=== PATIENT | male | born 1985 | race Caucasian/White ===

== ENCOUNTER → 2019-07-27 15:36 | Day surgery (SDC) | payer BC ==
--- NOTE | 2019-07-27 06:31 | HP ---
ADMITTING HISTORY AND PHYSICAL: DATE OF ADMISSION: 07/27/19 ADMITTING DIAGNOSIS: Left ureteral calculus. PLANNED PROCEDURE: Left ureteroscopy, possible laser and stent insertion. HISTORY OF PRESENT ILLNESS: Dante Yousif is a 34-year-old gentleman who has had an approximately 2-week history of intermittent left flank pain. He was initially noted to have an approximately 7 mm calculus in the mid to distal left ureter and has been managed conservatively. Most recently, he has been noted to have a persistent calculus 7 mm in the area of the left ureterovesical junction and is now being brought in for left ureteroscopy. I recommended that if he wants he could wait until next week to see if he is able to spontaneously pass the calculus, but at this point he would like to go ahead and proceed with left ureteroscopy. PAST MEDICAL HISTORY: Significant for anxiety, depression. PAST SURGICAL HISTORY: Significant for appendectomy. MEDICATIONS ON ADMISSION: Escitalopram 5 mg daily. ALLERGIES: PENICILLIN (rash). FAMILY HISTORY: Negative for stones. SOCIAL HISTORY: Smoking history: He is a nonsmoker. REVIEW OF SYSTEMS: He is otherwise in excellent health. There is no history of diabetes mellitus or any other major systemic illness. He denies any chest pain or shortness of breath. PHYSICAL EXAMINATION GENERAL: Reveals a pleasant, healthy-appearing young gentleman. VITAL SIGNS: Blood pressure is 128/80, pulse 77 per minute and regular, temperature 98.3, oxygen saturation 99% on room air. LUNGS: Clear bilaterally. CARDIOVASCULAR: Regular rate and rhythm. S1, S2. ABDOMEN: Soft with mild left flank tenderness. IMPRESSION: A 34-year-old gentleman with a persistent calculus in the left distal ureter. Planned procedure is left ureteroscopy, possible laser and stent insertion. I have discussed the procedure in detail including possible risks of infection, injury to the ureter, and also discussed the alternative of trying to continue conservative management. PLAN: Left ureteroscopy, possible laser and stent insertion. [id number]/CPS #: [id number] [facility]
[~2019-07-27 15:36] MED LIST: Acetaminophen IV 1GM/100ML * 100 ML ONE; Dexamethasone IV* 4 MG/ML 1 ML (4 MG) ONE; DiMENhydriNATE IV* 50 MG/ML VIAL IV PUSH PRN; Famotidine IV* 10 MG/ML 2 ML (20 mg) ONE; HYDROmorphone INJ1* 1 MG/ML SYRINGE IV PRN; Iohexol 180 (CONTRAST) 10 ML SDV IV ONE; Lidocaine 2% PF * 5 ML VIAL ONE; Midazolam* 1 MG/ML 5 ML VIAL (5 MG) ONE; Naloxone* 0.4 MG/ML 1 ML VIAL IV PRN; Ondansetron INJ* 2 MG/ML VIAL ONE; PROCHLORPERAZINE INJ 5 MG/ML 2 ML VIAL IV PRN; PROCHLORPERAZINE INJ 5 MG/ML 2 ML VIAL ONE; Propofol* 10 MG/ML 20 ML BTL ONE; Scopolamine 1.5 mg* PATCH TRANSDERM PRN; Scopolamine PATCH Remove* 1 NOTE MISC PATCH OFF ONE; Tamsulosin CAP* 0.4 MG ONE; cefTRIAXone(*) 2 GM ADDV.VIAL IVPB ONE; fentaNYL* 50 MCG/ML 2 ML VIAL (100 MCG VIAL) IV PRN; fentaNYL* 50 MCG/ML 2 ML VIAL (100 MCG VIAL) ONE; oxyCODONE TAB* 5 MG TAB ONE
[2019-07-27] MEDS: oxyCODONE TAB* 5 MG TAB PO PRN ×2 (18:14→18:56)
[2019-07-27 19:25] VITALS: BP 142/90
--- NOTE | 2019-07-28 00:44 | OP ---
DATE OF OPERATION: 07/27/19 [facility] DATE OF : 89 SURGEON: Dr. Shirley. ANESTHESIOLOGIST: Dr. Vigil. ANESTHESIA: General. PRE-OP DIAGNOSES: 1. Calculus, left ureter. 2. Left hydronephrosis. POST-OP DIAGNOSES: 1. Calculus, left ureter. 2. Left hydronephrosis. OPERATIVE PROCEDURE: Cystoscopy, left retrograde pyelogram, left ureteroscopy and laser lithotripsy and removal of calculus fragment, and left stent insertion. COMPLICATIONS: None. STENT USED: 6-Montenegrin stent, left ureter. INDICATIONS: Dante Yousif is a 34-year-old gentleman who has had persistent left flank pain for almost 2 weeks secondary to a calculus in the left ureter. He was given the option of trying to continue conservative management but because of increasing discomfort, he would like to have the stone removed and is now being brought in for the same. OPERATIVE FINDINGS: Approximately 6 to 7 mm calculus impacted in left distal ureter with surrounding edema and inflammation and left hydronephrosis and proximal hydroureter. OPERATIVE CONDITION: Stable. DESCRIPTION OF PROCEDURE: After induction of general anesthesia, the patient was placed in dorsal lithotomy position. Sequential compression devices were in place and functioning. Initial evaluation revealed a normal appearing urethra and prostate. The bladder was entered and examined. There was clear efflux noted from the right orifice. There was minimal efflux noted from the left orifice suggesting higher grade obstruction. A guidewire was introduced into the left ureter. Retrograde pyelogram revealed left hydronephrosis and proximal hydroureter. A 6- Montenegrin semi-rigid ureteroscope was introduced into the left ureter just above the ureterovesical junction and approximately 7-mm calculus was noted to be impacted with surrounding edema and inflammation. This was carefully disengaged and using a 550 micron holmium laser fiber, this was fragmented into multiple pieces, all of which were retrieved. A 6-Montenegrin stent was introduced and positioned under fluoroscopy with good proximal and distal positioning obtained. The bladder was emptied. The patient tolerated the procedure satisfactorily and was transferred back to the recovery area in stable condition. [id number] #: [id number] [facility]TD[facility]
== END | disposition home or self-care (01) ==
LOC: OR 15:36
PROVIDERS: ATTEND Urology
DX: N13.2 Hydronephrosis with renal and ureteral calculous obstruction (principal); F41.8 Other specified anxiety disorders
CPT/HCPCS: 74420; 82365; 88300; A9270-GY; C1876; J0696; J0780; J1100; J2250; J2405; J2704; J3010